=== PATIENT | female | born 1995 | race Caucasian/White ===

== ENCOUNTER 2017-10-24 00:27 | Emergency (ER) | payer OTHER ==
[2017-10-24 00:35] VITALS: Ht 149.9 cm
[2017-10-24 02:33] LABS: BASOPHIL % 0.2 % (0-2); PLATELET COUNT 300 x10^3mcL (130-400); RED CELL DISTRIBUTION WIDTH 11.8 % (11.5-14.5)
[2017-10-24 02:35] LABS: UA SPECIFIC GRAVITY 1.025 (1.005-1.035); microscopic required? YES; urine erythrocyte NEGATIVE (NEGATIVE)
[2017-10-24 02:43] LABS: CALCIUM 9.4 mg/dL (8.5-10.1); CHLORIDE SERUM 104 mmol/L (98-107); CREATININE SERUM 0.7 mg/dL (0.6-1.0); GFR1 > 60 mL/min; GLUCOSE SERUM 92 mg/dL (74-106); POTASSIUM SERUM 3.6 mmol/L (3.5-5.1); SODIUM SERUM 140 mmol/L (136-145)
[2017-10-24 02:48] LABS: ALKALINE PHOSPHATASE 127 U/L (46-116); ALT/SGPT 24 U/L (14-59); AMYLASE 46 U/L (25-115); AST/SGOT 21 U/L (15-37); BILIRUBIN TOTAL 0.68 mg/dL (0.20-1.00); LIPASE 87 IU/L (73-393)
[2017-10-24 02:50] LABS: TOTAL PROTEIN, SERUM 8.3 g/dL (6.4-8.2)
[2017-10-24 05:11] VITALS: BP 102/58
== END 2017-10-24 05:11 | disposition home or self-care (01) ==
LOC: ED 00:27
PROVIDERS: Emergency Medicine
DX: R10.13 Epigastric pain (principal); R11.10 Vomiting, unspecified; R19.7 Diarrhea, unspecified
CPT/HCPCS: 83880; J1885; J2405; J7030

== ENCOUNTER 2019-03-05 08:52 | Emergency (ER) | payer OTHER ==
[~2019-03-05] VITALS: Ht 149.9 cm; Wt 58.5 kg
[2019-03-05 08:59] VITALS: Ht 149.9 cm; Wt 58.5 kg
[2019-03-05 10:18] VITALS: BP 115/71
== END 2019-03-05 10:18 | disposition home or self-care (01) ==
LOC: ED 08:52
DX: K29.00 Acute gastritis without bleeding (principal)

== ENCOUNTER 2019-05-05 11:33 | Emergency (ER) | payer OTHER ==
[~2019-05-05] VITALS: Ht 149.9 cm; Wt 62.1 kg
[2019-05-05 11:44] VITALS: BP 111/69; Ht 149.9 cm; Wt 62.1 kg
== END 2019-05-05 12:36 | disposition home or self-care (01) ==
LOC: ED 11:33
DX: J06.9 Acute upper respiratory infection, unspecified (principal)

== ENCOUNTER 2019-05-24 13:24 | Emergency (ER) | payer OTHER ==
[~2019-05-24] VITALS: Ht 149.9 cm; Wt 59.9 kg
[2019-05-24 13:39] VITALS: Ht 149.9 cm; Wt 59.9 kg
[2019-05-24 14:38] VITALS: BP 119/71
== END 2019-05-24 14:38 | disposition home or self-care (01) ==
LOC: ED 13:24
DX: J40 Bronchitis, not specified as acute or chronic (principal)

== ENCOUNTER → 2019-10-15 | Outpatient (CLI) | payer OTHER ==
[2019-10-15 09:37] LABS: BASOPHIL % 0.6 % (0-2); PLATELET COUNT 267 x10^3mcL (130-400); RED CELL DISTRIBUTION WIDTH 12.4 % (11.5-14.5)
[2019-10-15 09:44] LABS: ALBUMIN 3.8 g/dL (3.4-5.0); ALKALINE PHOSPHATASE 104 U/L (46-116); ALT/SGPT 31 U/L (14-59); AST/SGOT 22 U/L (15-37); BILIRUBIN TOTAL 0.2 mg/dL (0.20-1.00); CALCIUM 9.5 mg/dL (8.5-10.1); CARBON DIOXIDE 28.3 mmol/L (21-32); CHLORIDE SERUM 102 mmol/L (98-107); CHOLESTEROL 156 mg/dL (<200); CHOLESTEROL/HDL RATIO 3.4; CREATININE SERUM 0.7 mg/dL (0.6-1.0); FREE T4 0.95 ng/dL (0.76-1.46); GFR1 > 60 mL/min; GLUCOSE SERUM 92 mg/dL (74-106); HDL CHOLESTEROL 46 mg/dL (40-60); POTASSIUM SERUM 3.8 mmol/L (3.5-5.1); SODIUM SERUM 139 mmol/L (136-145); TOTAL PROTEIN, SERUM 7.9 g/dL (6.4-8.2); TRIGLYCERIDES 107 mg/dL (<150)
== END | disposition home or self-care (01) ==
LOC: LB 08:50
PROVIDERS: ATTEND Family Medicine
DX: R42 Dizziness and giddiness (principal); R51 Headache
CPT/HCPCS: 84439